=== PATIENT | male | born 1985 | race Caucasian/White ===

== ENCOUNTER 2016-08-20 08:33 | Inpatient (IN) | payer SELFPAY ==
[~2016-08-20 08:33] MED LIST: BACT800T5 PO; HYDR-3533 PO; IBUP800T23 PO; TAB-TAB PO
[2016-08-20 08:38] VITALS: BP 136/80; PULSE 103; RESP 20; TEMP 98.2; O2SAT 99
[2016-08-20] MEDS ORDERED: METH40TA PO (08:45)
[2016-08-20] MEDS ORDERED: TETANUS/DIPHTHERIA TOXOID ADULT 0.5 ML VIAL IM ONE (08:45)
[2016-08-20 09:00] VITALS: O2SAT 97
[2016-08-20] MEDS ORDERED: DIPHTH/TETANUS/ACEL PERTUSSIS (BOOSTER) 0.5 ML VIAL/PFS IM ONE (09:00)
[2016-08-20 09:13] LABS: AUTOMATED NEUTROPHIL # 8.8 TH/MM3 (1.8-7.7); BASOPHIL % 0.2 % (0.0-2.0); EOSINOPHIL # 0.2 TH/MM3 (0-0.4); EOSINOPHIL % 1.2 % (0.0-4.0); HEMO FLAGS DIFF FINAL; LYMPH % 27.6 % (9.0-44.0); LYMPHOCYTE # 3.7 TH/MM3 (1.0-4.8); MEAN CELL VOLUME 85.3 FL (80.0-100.0); MEAN CORPUSCULAR HEMOGLOBIN 29.5 PG (27.0-34.0); MEAN CORPUSCULAR HGB CONC 34.6 % (32.0-36.0); PLATELET COUNT 375 TH/MM3 (150-450); RED BLOOD COUNT 4.81 MIL/MM3 (4.50-5.90); RED CELL DISTRIBUTION WIDTH 12.9 % (11.6-17.2); WHITE BLOOD COUNT 13.5 TH/MM3 (4.0-11.0)
[2016-08-20 09:22] LABS: I-STAT SODIUM 142 MMOL/L (138-146)
[2016-08-20 09:38] LABS: ALKALINE PHOSPHATASE 91 U/L (45-117); TOTAL BILIRUBIN ADULT 0.2 MG/DL (0.2-1.0)
[2016-08-20 09:45] LABS: ALT (GPT) 27 U/L (12-78); ANION GAP 4 MEQ/L (5-15); AST (GOT) 23 U/L (15-37); BICARBONATE 24.8 MEQ/L (21.0-32.0); BLOOD UREA NITROGEN 11 MG/DL (7-18); CHLORIDE 111 MEQ/L (98-107); GLOMERULAR FILTRATION RATE 92 ML/MIN (>89); SODIUM (NA) 140 MEQ/L (136-145)
--- NOTE | 2016-08-20 09:54 | PD ---
Physical Exam Time Seen by Provider: 09:54 Narrative I was asked, by Lion Carreon, to repair the lacerations. Data Data Last Documented VS Vital Signs Date Time Temp Pulse Resp B/P Pulse Ox O2 Delivery O2 Flow Rate FiO2 08/20/16 09:00 97 21 08/20/16 08:38 98.2 103 20 136/80 Orders Complete Blood Count With Diff (08/20/16 08:45) Comprehensive Metabolic Panel (08/20/16 08:45) ^ Insert Iv (08/20/16 08:45) Tetanus/Diphtheria Tox Adult (Tetanus/Di (08/20/16 08:45) Mfsi-Qdr-Mwever (Booster) Inj (Boostrix (08/20/16 09:00) Type And Screen (08/20/16 09:01) Chest, Single Ap (08/20/16 ) I-Stat Creatinine (08/20/16 08:45) I-Stat Profile (08/20/16 08:45) Red Blood Cells (Rbc) (08/20/16 08:59) Bupivacaine Pf 0.5% Inj (Marcaine Pf 0.5 (08/20/16 10:00) Lidocaine 1% Inj (50 Ml) (Xylocaine 1% I (08/20/16 10:00) Labs Laboratory Tests Test 08/20/16 08/20/16 08:45 08:59 White Blood Count 13.5 TH/MM3 Red Blood Count 4.81 MIL/MM3 Hemoglobin 14.2 GM/DL Bedside Hemoglobin 13.6 G/DL Hematocrit 41.0 % Bedside Hematocrit 40.0 % Mean Corpuscular Volume 85.3 FL Mean Corpuscular Hemoglobin 29.5 PG Mean Corpuscular Hemoglobin 34.6 % Concent Red Cell Distribution Width 12.9 % Platelet Count 375 TH/MM3 Mean Platelet Volume 7.3 FL Neutrophils (%) (Auto) 65.0 % Lymphocytes (%) (Auto) 27.6 % Monocytes (%) (Auto) 6.0 % Eosinophils (%) (Auto) 1.2 % Basophils (%) (Auto) 0.2 % Neutrophils # (Auto) 8.8 TH/MM3 Lymphocytes # (Auto) 3.7 TH/MM3 Monocytes # (Auto) 0.8 TH/MM3 Eosinophils # (Auto) 0.2 TH/MM3 Basophils # (Auto) 0.0 TH/MM3 CBC Comment DIFF FINAL Differential Comment Bedside Sodium 142 MMOL/L Sodium Level 140 MEQ/L Bedside Potassium 4.0 MMOL/L Potassium Level 4.0 MEQ/L Bedside Chloride 109 MMOL/L Chloride Level 111 MEQ/L Carbon Dioxide Level 24.8 MEQ/L Anion Gap 4 MEQ/L Bedside Blood Urea Nitrogen 11 MG/DL Blood Urea Nitrogen 11 MG/DL Creatinine 0.95 MG/DL Bedside Creatinine 0.9 MG/DL Estimat Glomerular Filtration 92 ML/MIN Rate Bedside Glucose 112 MG/DL Random Glucose 110 MG/DL Calcium Level 8.1 MG/DL Total Bilirubin 0.2 MG/DL Aspartate Amino Transf 23 U/L (AST/SGOT) Alanine Aminotransferase 27 U/L (ALT/SGPT) Alkaline Phosphatase 91 U/L Total Protein 6.9 GM/DL Albumin 3.2 GM/DL Blood Type A POSITIVE Antibody Screen NEGATIVE Crossmatch Leukocyte-Reduced Red Blood Cells Blood Bank Comment MDM Supervised Visit with ZEKE: Yes Narrative Course I was asked, by Lion Carreon, to repair the lacerations. See my procedure note. Procedures Procedure Narrative LACERATION LOCATION: Left upper arm (upper laceration) LENGTH: 2 cm NUMBER OF STITCHES/NILESH: 4 nilesh REPAIR: The area of the laceration was prepped with Betadine and sterilely draped. The laceration was infiltrated with 1% lidocaine. The wound was copiously irrigated and explored without evidence of foreign body, tendon injury or neurovascular injury. The wound was closed using nilesh. This was a single layer repair. A sterile dressing was applied. The patient was advised to keep the dressing clean and dry. Patient tolerated the procedure well. LACERATION LOCATION: Left upper arm (mid medial laceration) LENGTH: 2.5 cm NUMBER OF STITCHES/NILESH: 5 nilesh REPAIR: The area of the laceration was prepped with Betadine and sterilely draped. The laceration was infiltrated with 1% lidocaine. The wound was copiously irrigated and explored without evidence of foreign body, tendon injury or neurovascular injury. The wound was closed using nilesh. This was a single layer repair. A sterile dressing was applied. The patient was advised to keep the dressing clean and dry. Patient tolerated the procedure well. LACERATION LOCATION: Left upper arm (mid lateral laceration) LENGTH: 3 cm NUMBER OF STITCHES/NILESH: 7 nilesh REPAIR: The area of the laceration was prepped with Betadine and sterilely draped. The laceration was infiltrated with 1% lidocaine. The wound was copiously irrigated and explored without evidence of foreign body, tendon injury or neurovascular injury. The wound was closed using nilesh. This was a single layer repair. A sterile dressing was applied. The patient was advised to keep the dressing clean and dry. Patient tolerated the procedure well. LACERATION LOCATION: Left upper arm (lower laceration) LENGTH: 3 cm NUMBER OF STITCHES/NILESH: 6 nilesh REPAIR: The area of the laceration was prepped with Betadine and sterilely draped. The laceration was infiltrated with 1% lidocaine. The wound was copiously irrigated and explored without evidence of foreign body, tendon injury or neurovascular injury. The wound was closed using nilesh. This was a single layer repair. A sterile dressing was applied. The patient was advised to keep the dressing clean and dry. Patient tolerated the procedure well. LACERATION LOCATION: Left axilla (upper) LENGTH: 1 cm NUMBER OF STITCHES/NILESH: 2 nilesh REPAIR: The area of the laceration was prepped with Betadine and sterilely draped. The laceration was infiltrated with 1% lidocaine. The wound was copiously irrigated and explored without evidence of foreign body, tendon injury or neurovascular injury. The wound was closed using nilesh. This was a single layer repair. A sterile dressing was applied. The patient was advised to keep the dressing clean and dry. Patient tolerated the procedure well. LACERATION LOCATION: Left axilla (lower) LENGTH: 1 cm NUMBER OF STITCHES/NILESH: 2 nilesh REPAIR: The area of the laceration was prepped with Betadine and sterilely draped. The laceration was infiltrated with 1% lidocaine. The wound was copiously irrigated and explored without evidence of foreign body, tendon injury or neurovascular injury. The wound was closed using nilesh. This was a single layer repair. A sterile dressing was applied. The patient was advised to keep the dressing clean and dry. Patient tolerated the procedure well. LACERATION LOCATION: Distal aspect of Right middle finger LENGTH: 2cm NUMBER OF STITCHES/NILESH: 5 simple interrupted sutures REPAIR: The area of the laceration was prepped with Betadine and sterilely draped. The finger was digitally blocked with 1% lidocaine and 0.5% bupivacaine. The wound was copiously irrigated and explored without evidence of foreign body, tendon injury or neurovascular injury. The wound was closed using 4-0 Prolene. This was a single layer repair. A sterile dressing was applied. The patient was advised to keep the dressing clean and dry. Patient tolerated the procedure well. Scripts Cephalexin (Keflex)500 Mg Glb180 Mg PO Q12H 7 Days Ref 0 Prov:Ale Seymour MD 08/20/16 Elaine Ayon Aug 20, 2016 09:54
[2016-08-20] MEDS ORDERED: CEPH-460 PO (09:58)
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
[2016-08-20] MEDS ORDERED: BUPIVACAINE HCL PF 0.5% 10 ML VIAL INFIL ONE (10:00)
[2016-08-20] MEDS ORDERED: LIDOCAINE HCL 1% 50 ML VIAL INFIL ONE (10:00)
[2016-08-20] MEDS ORDERED: ONDANSETRON HCL 4 MG/2 ML VIAL IV PUSH ONE (12:00)
[2016-08-20] MEDS ORDERED: LACTATED RINGER'S 1000 ML INJ 2,000 ML IV ONE (12:00)
[2016-08-20] MEDS ORDERED: PROPOFOL 200 MG/20 ML AMP IV ONE (12:00)
[2016-08-20 12:12] VITALS: BP 118/75; PULSE 88; RESP 18; O2SAT 99
[2016-08-20] MEDS ORDERED: IOHEXOL 350 MG/ML 10 ML VIAL (for RAD DIAG) IV ONE (12:37)
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
[2016-08-20 14:55] VITALS: BP 115/71; PULSE 85; RESP 18; O2SAT 99
[2016-08-20] MEDS ORDERED: HEPARIN SODIUM - IV 10,000 UNITS/10 ML VIAL ONE (15:34)
[2016-08-20] MEDS ORDERED: HEPARIN SODIUM - SQ 10,000 UNITS/ML VIAL ONE (15:34)
[2016-08-20] MEDS ORDERED: ceFAZolin 2 GM PREMIX 50 ML ONE (15:39)
[2016-08-20] MEDS ORDERED: BUPIVACAINE/EPINEPHRINE 0.5% PF 10 ML VIAL ONE (15:42)
[2016-08-20] MEDS ORDERED: ONDANSETRON HCL 4 MG/2 ML VIAL IV PRN (15:45)
[2016-08-20] MEDS ORDERED: SODIUM CHLORIDE 0.9% FLUSH 10 ML FLUSH IV FLUSH PRN (15:45)
[2016-08-20] MEDS ORDERED: NALOXONE HCL 0.4 MG/ML AMP IV PRN (15:45)
[2016-08-20] MEDS ORDERED: Post-op Orders (for Pharmacy) MISC XX ONE (15:45)
[2016-08-20] MEDS: SODIUM CHLOR 0.9% 1000 ML INJ 1,000 ML IV SCH (17:36)
[2016-08-20] MEDS: PANTOPRAZOLE SOD 40 MG DELAYED RELEASE TAB PO SCH (18:00)
[2016-08-20] MEDS ORDERED: fentaNYL CITRATE 250 MCG/5 ML AMP ONE (18:18)
[2016-08-20] MEDS ORDERED: *morphine SULFATE 8 MG/ML PERIprocedure ONLY ONE ×2 (18:22→18:54)
[2016-08-20] MEDS ORDERED: DO NOT ADM ANY ANTICOAGULANT DRUGS PRN ×2 (19:00)
[2016-08-20] MEDS: oxyCODONE/ACETAMINOPHEN 5 MG/325 MG TAB PO PRN (19:49)
[2016-08-20 20:00] VITALS: BP 129/79; PULSE 80; RESP 20; TEMP 100.5; O2SAT 97
[2016-08-20] MEDS: SODIUM CHLORIDE 0.9% FLUSH 10 ML FLUSH IV FLUSH SCH (20:19)
[2016-08-20] MEDS: DOCUSATE SODIUM 50 MG/SENNA 8.6 MG TAB PO SCH (20:20)
[2016-08-20] MEDS ORDERED: DOCUSATE SODIUM 100 MG CAP PO SCH (21:00)
[2016-08-20] MEDS: MORPHINE SULFATE 4 MG/ML INJ IV PRN (22:13)
[2016-08-21] VITALS (7 sets, daily range): BP systolic 115–155; BP diastolic 58–93; PULSE 67–103; RESP 16–19; TEMP 97.1–99; O2SAT 95–98
[2016-08-21] MEDS: oxyCODONE/ACETAMINOPHEN 5 MG/325 MG TAB PO PRN (00:45)
[2016-08-21] MEDS: SODIUM CHLOR 0.9% 1000 ML INJ 1,000 ML IV SCH (04:45)
[2016-08-21] MEDS: MORPHINE SULFATE 4 MG/ML INJ IV PRN ×3 (04:46→21:27)
[2016-08-21 05:42] LABS: AUTOMATED NEUTROPHIL # 7.6 TH/MM3 (1.8-7.7); BASOPHIL # 0.1 TH/MM3 (0-0.2); BASOPHIL % 0.9 % (0.0-2.0); EOSINOPHIL % 0.2 % (0.0-4.0); HEMATOCRIT 31.5 % (39.0-51.0); HEMO FLAGS DIFF FINAL; LYMPH % 18.5 % (9.0-44.0); MEAN CELL VOLUME 84.4 FL (80.0-100.0); MEAN CORPUSCULAR HEMOGLOBIN 29.6 PG (27.0-34.0); MEAN CORPUSCULAR HGB CONC 35.1 % (32.0-36.0); MONO % 8.2 % (0.0-8.0); NEUT % 72.2 % (16.0-70.0); PLATELET COUNT 242 TH/MM3 (150-450); RED BLOOD COUNT 3.74 MIL/MM3 (4.50-5.90); WHITE BLOOD COUNT 10.6 TH/MM3 (4.0-11.0)
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
[2016-08-21 06:04] LABS: BICARBONATE 29.3 MEQ/L (21.0-32.0); POTASSIUM 3.8 MEQ/L (3.5-5.1)
[2016-08-21] MEDS: CLOPIDOGREL 75 MG TAB PO SCH (08:41)
[2016-08-21] MEDS: SODIUM CHLORIDE 0.9% FLUSH 10 ML FLUSH IV FLUSH SCH ×2 (08:42→21:10)
[2016-08-21] MEDS: DOCUSATE SODIUM 50 MG/SENNA 8.6 MG TAB PO SCH ×2 (08:43→21:10)
[2016-08-21] MEDS: METHADONE HCL 10 MG TAB PO SCH (11:45)
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
[2016-08-21] MEDS: PANTOPRAZOLE SOD 40 MG DELAYED RELEASE TAB PO SCH (16:32)
[2016-08-21] MEDS ORDERED: ENOXAPARIN SODIUM 40 MG/0.4 ML SYRINGE SQ SCH (17:08)
[2016-08-22] VITALS: BP 138/75; PULSE 71; RESP 19; TEMP 98.2; O2SAT 96
[2016-08-22 06:01] LABS: HEMATOCRIT 33.5 % (39.0-51.0); REVIEW FLAG FINAL
[2016-08-22 08:00] VITALS: BP 122/73; PULSE 60; RESP 17; TEMP 95.7; O2SAT 97
[2016-08-22] MEDS: DOCUSATE SODIUM 50 MG/SENNA 8.6 MG TAB PO SCH (09:00)
[2016-08-22] MEDS: METHADONE HCL 10 MG TAB PO SCH (09:11)
[2016-08-22] MEDS: CLOPIDOGREL 75 MG TAB PO SCH (09:11)
[2016-08-22] MEDS: SODIUM CHLORIDE 0.9% FLUSH 10 ML FLUSH IV FLUSH SCH (09:12)
[2016-08-22 11:07] VITALS: O2SAT 98
[2016-08-22] MEDS ORDERED: PLAV75TA29 PO (11:54)
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
== END 2016-08-22 12:56 | disposition home or self-care (01) | DRG 909 ==
LOC: NEPI 08:33 → NEDA 14:18 → N07B 20:03
PROVIDERS: ADMIT Surgery; ATTEND Surgery
PROC: 06BQ0ZZ Excision of Left Saphenous Vein, Open Approach (ICD-10-PCS; 2016-08-20)
PROC: 0HQCXZZ Repair Left Upper Arm Skin, External Approach (ICD-10-PCS; 2016-08-20)
PROC: 0HQGXZZ Repair Left Hand Skin, External Approach (ICD-10-PCS; 2016-08-20)
PROC: 03Q80ZZ Repair Left Brachial Artery, Open Approach (ICD-10-PCS; principal; 2016-08-20 15:46)
DX: S45.112A Laceration of brachial artery, left side, initial encounter (principal); F11.10 Opioid abuse, uncomplicated; S41.112A Laceration without foreign body of left upper arm, initial encounter; S41.012A Laceration without foreign body of left shoulder, initial encounter; S61.212A Laceration without foreign body of right middle finger without damage to nail, initial encounter; X99.1XXA Assault by knife, initial encounter; Y92.9 Unspecified place or not applicable; F17.210 Nicotine dependence, cigarettes, uncomplicated; F10.10 Alcohol abuse, uncomplicated
CPT/HCPCS: 36430; 71010; 73206; 76937; 80048; 80053; 82435; 82565; 82947; 84132; 84295; 84520; 85014; 85018; 85025; 86850; 86900; 86901; 86920; 88304; 88305; 90715; 94150; J0690; J1644; J1650; J2270; J2405; J3010; J7030; J7120; P9016; Q9967